=== PATIENT | male | born 1940 | race Caucasian/White ===

== ENCOUNTER 2016-09-12 07:27 | Outpatient (CLI) | payer MEDICARE | END 2016-09-12 07:28 | disposition home or self-care (01) | DX: R97.20 Elevated prostate specific antigen [PSA] (principal); E87.6 Hypokalemia; I10 Essential (primary) hypertension; E78.5 Hyperlipidemia, unspecified; R73.01 Impaired fasting glucose ==

== ENCOUNTER 2016-09-26 | Outpatient (CLI) | payer MEDICARE | END 2016-09-26 09:15 | disposition home or self-care (01) | DX: Z53.9 Procedure and treatment not carried out, unspecified reason (principal) ==

== ENCOUNTER 2016-09-29 12:44 | Outpatient (CLI) | payer MEDICARE ==
[2016-09-29] MEDS ORDERED: ALBUTEROL NEB 2.5 MG/3 ML INH ONE (13:40)
== END 2016-09-29 12:45 | disposition home or self-care (01) ==
DX: R05 Cough (principal)
CPT/HCPCS: 94060; 94729; J7613

== ENCOUNTER 2017-01-03 09:23 | Outpatient (CLI) | payer MEDICARE | END 2017-01-03 09:24 | DX: R74.8 Abnormal levels of other serum enzymes (principal); E87.6 Hypokalemia ==

== ENCOUNTER 2017-01-29 13:03 | Outpatient (CLI) | payer MEDICARE | END 2017-01-29 13:04 | disposition home or self-care (01) | DX: E87.1 Hypo-osmolality and hyponatremia (principal); R74.8 Abnormal levels of other serum enzymes ==

== ENCOUNTER 2017-01-31 10:56 | Outpatient (CLI) | payer MEDICARE ==
[2017-01-31 19:04] LABS: THYROID STIMULATING HORMONE 1.13 uIU/mL (0.34-5.60)
[2017-02-06 12:50] LABS: HOMOCYSTEINE 28.1 umol/L (<11.4)
== END 2017-01-31 10:57 | disposition home or self-care (01) ==
LOC: LAB.F 10:56
PROVIDERS: ATTEND Internal Medicine
DX: R41.3 Other amnesia (principal)
CPT/HCPCS: 36415; 82607; 83090; 83921; 84443

== ENCOUNTER 2017-03-02 10:13 | Outpatient (CLI) | payer MEDICARE ==
[2017-03-06 18:41] LABS: TEST RESULT REPORT (())
[2017-03-07 00:11] LABS: TEST RESULT REPORT (())
== END 2017-03-02 10:14 | disposition home or self-care (01) ==
LOC: LAB.F 10:13
PROVIDERS: ATTEND Internal Medicine
DX: E53.8 Deficiency of other specified B group vitamins (principal)
CPT/HCPCS: 36415; 81599; 83516; 86340

== ENCOUNTER 2017-04-23 11:10 | Outpatient (CLI) | payer MEDICARE ==
[2017-04-23 19:11] LABS: CALCIUM 9.3 mg/dL (8.5-10.3); CREATININE 0.9 mg/dL (0.6-1.2); POTASSIUM 4.6 mmol/L (3.5-5.0)
== END 2017-04-23 11:11 | disposition home or self-care (01) ==
LOC: LAB.F 11:10
PROVIDERS: ATTEND Internal Medicine
DX: E87.1 Hypo-osmolality and hyponatremia (principal)
CPT/HCPCS: 36415; 80048

== ENCOUNTER 2017-06-13 09:23 | Outpatient (CLI) | payer MEDICARE ==
[2017-06-13 17:36] LABS: BILIRUBIN,URINE NEGATIVE (NEGATIVE)
[2017-06-13 17:48] LABS: WBC,URINE 0-3 /HPF (0-3)
== END 2017-06-13 09:24 | disposition home or self-care (01) ==
LOC: LAB.F 09:23
PROVIDERS: ATTEND Internal Medicine
DX: R30.0 Dysuria (principal)
CPT/HCPCS: 81001; 87086

== ENCOUNTER 2017-09-18 08:00 | Outpatient (CLI) | payer MEDICARE ==
[2017-09-18 19:36] LABS: BASOPHILS % (AUTO) 0.4 %; HGB - HEMOGLOBIN 16.5 g/dL (14.0-18.0); LYMPHOCYTES % (AUTO) 41.4 %; MEAN CORPUSCULAR HEMOGLOBIN 30.3 pg (27.0-31.0); MEAN CORPUSCULAR VOLUME 91.8 fL (80.0-94.0); MEAN PLATELET VOLUME 8.8 fL (7.4-11.4); MONOCYTES % (AUTO) 10.9 %; NEUTROPHILS % (AUTO) 46.3 %; PLT - PLATELET COUNT 280 10^3/uL (130-450); RED BLOOD COUNT 5.46 10^6/uL (4.70-6.10); RED CELL DISTRIBUTION WIDTH 13.3 % (12.0-15.0); WHITE BLOOD COUNT 9.8 x10^3/uL (4.8-10.8)
[2017-09-18 19:38] LABS: ABNORMAL LYMPHS % (MANUAL) 0 %
[2017-09-18 20:04] LABS: BAND NEUTROPHILS % (MANUAL) 2 %; DIFFERENTIAL COMMENT MANUAL DIFFERENTIAL; LYMPHOCYTES # (MANUAL) 3.8 10^3/uL (1.5-3.5); LYMPHOCYTES % (MANUAL) 39 %; MONOCYTES # (MANUAL) 0.7 10^3/uL (0.0-1.0); NEUTROPHILS # (MANUAL) 5.3 10^3/uL (1.5-6.6); NEUTROPHILS % (MANUAL) 52 %; PLATELET ESTIMATE, MANUAL NORMAL (130-450,000) (NORMAL); PLATELET MORPHOLOGY 1+ GIANT PLATELETS (NORMAL); RBC MORPHOLOGY (MULTIPLE) NORMAL APPEARANCE (NORMAL)
[2017-09-18 20:16] LABS: ALBUMIN 4.3 g/dL (3.2-5.5); ALBUMIN/GLOBULIN RATIO 1.3 (1.0-2.2); BILIRUBIN,TOTAL 0.5 mg/dL (0.2-1.0); TOTAL PROTEIN 7.6 g/dL (6.7-8.2)
== END 2017-09-18 08:01 | disposition home or self-care (01) ==
LOC: LAB.WCP 08:00
PROVIDERS: ATTEND Nurse Practitioner Family
DX: L29.9 Pruritus, unspecified (principal)
CPT/HCPCS: 36415; 80053; 85025

== ENCOUNTER 2018-01-30 08:00 | Outpatient (CLI) | payer MEDICARE | END 2018-01-30 08:01 | LOC: LAB.R 08:00 | PROVIDERS: ATTEND Physician Assistant Medical | DX: J02.9 Acute pharyngitis, unspecified (principal) | CPT/HCPCS: 87070; 87430 ==

== ENCOUNTER 2020-02-23 19:58 | Emergency (ER) | payer MEDICARE ==
--- NOTE | 2020-02-23 20:31 | ED Physician Documentation ---
History of Present Illness - Stated complaint Stated Complaint: DIZZY, BILAT LEG TINGLE - Chief complaint Chief Complaint: Neuro - History obtained from History obtained from: Patient - History of Present Illness Timing: Today (Relatively healthy 79-year-old gentleman. He has a history of hypertension and is on amlodipine. Also a history of prostate cancer for which he gets intermittent Lupron injections. He was in his usual state of health today, did not really do anything out of the ordinary but the notes that he had 2 large bottles of Diet Coke earlier but that is not that out of the or dinary either. He was on his way back and from getting the mail in about sit down for dinner when he felt both legs start to go tingly and then felt presyncopal. There was no vertigo. Denies weakness. Has a mild right-sided headache.) Review of Systems Constitutional: reports: Fatigue. denies: Fever, Chills Nose: denies: Rhinorrhea / runny nose, Congestion Cardiac: denies: Chest pain / pressure, Palpitations, Pedal edema, Calf pain Respiratory: denies: Dyspnea, Cough, Hemoptysis, Wheezing GI: denies: Abdominal Pain, Nausea, Vomiting, Diarrhea PD PAST MEDICAL HISTORY - Allergies Allergies/Adverse Reactions: Allergies Allergy/AdvReac Type Severity Reaction Status Date / Time Penicillins Allergy Unknown Verified 02/23/20 20:01 Sulfa (Sulfonamide Allergy Rash Verified 02/23/20 20:01 Antibiotics) PD ED PE NORMAL - Vitals Vital signs reviewed: Yes (Mild tachycardia) - General General: Alert and oriented X 3, No acute distress - HEENT HEENT: PERRL, EOMI - Neck Neck: Supple, no meningeal sign, No bony TTP - Cardiac Cardiac: Other (Tachycardic but regular without murmur) - Respiratory Respiratory: No respiratory distress, Clear bilaterally - Abdomen Abdomen: Normal bowel sounds, Soft, Non tender - Back Back: No CVA TTP, No spinal TTP - Derm Derm: Normal color, Warm and dry - Extremities Extremities: No edema, No calf tenderness / cord - Neuro Neuro: Alert and oriented X 3, No motor deficit, No sensory deficit, Normal speech, Other (NIHSS = zero) Results - Vitals Vitals: Vital Signs - 24 hr 02/23/20 02/23/20 20:01 20:57 Temperature 36.6 C Heart Rate 129 H 107 H Respiratory 14 14 Rate Blood Pressure 158/96 H 144/87 H O2 Saturation 98 93 Oxygen O2 Source Room air - EKG (time done) 2011 Rate: Rate (enter#) (116) Rhythm: Sinus tachycardia [place]: Normal Intervals: Normal [place] QRS: Normal Ischemia: Normal ST segments Computer interpretation: Agree with computer - Labs Labs: Laboratory Tests 02/23/20 02/23/20 02/23/20 20:15 20:15 20:39 WBC 8.8 RBC 5.86 Hgb 17.3 Hct 51.2 MCV 87.4 MCH 29.5 MCHC 33.8 RDW 13.6 Plt Count 277 MPV 10.5 Neut # (Auto) 4.2 Lymph # (Auto) 3.5 [place] # (Auto) 0.8 Eos # (Auto) 0.2 Baso # (Auto) 0.1 Absolute Nucleated RBC 0.00 Nucleated RBC % 0.0 VBG pH 7.436 H VBG pCO2 33.7 L VBG pO2 36.8 VBG HCO3 22.2 L VBG Total CO2 23.2 L VBG O2 Saturation 76.8 VBG Base Excess -1.1 Sodium 134 L Potassium 3.8 Chloride 99 L Carbon Dioxide 25 Anion Gap 10.0 BUN 12 Creatinine 0.9 Estimated GFR (MDRD) 81 L Glucose 123 H Lactic Acid Calcium 8.9 Total Bilirubin 0.8 AST 21 ALT 21 Alkaline Phosphatase 68 Total Protein 7.6 Albumin 4.4 Globulin 3.2 Albumin/Globulin Ratio 1.4 Lipase 37 02/23/20 20:39 WBC RBC Hgb Hct MCV MCH MCHC RDW Plt Count MPV Neut # (Auto) Lymph # (Auto) [place] # (Auto) Eos # (Auto) Baso # (Auto) Absolute Nucleated RBC Nucleated RBC % VBG pH VBG pCO2 VBG pO2 VBG HCO3 VBG Total CO2 VBG O2 Saturation VBG Base Excess Sodium Potassium Chloride Carbon Dioxide Anion Gap BUN Creatinine Estimated GFR (MDRD) Glucose Lactic Acid 1.1 Calcium Total Bilirubin AST ALT Alkaline Phosphatase Total Protein Albumin Globulin Albumin/Globulin Ratio Lipase PD MEDICAL DECISION MAKING - ED course ED course: 79-year-old gentleman brought in for nonspecific presyncopal type dizziness that is mostly resolved. Neurologic exam is normal. The only abnormal finding on examination is modest tachycardia which improved throughout his stay. Labs were basically normal with mild respiratory alkalosis. Orthostatics were negative. He was feeling better without specific intervention. Departure - Departure Disposition: 01 Home, Self Care Clinical Impression: Dizziness Condition: Good Record reviewed to determine appropriate education?: Yes Instructions: ED Near Syncope Vasovagal Comments: You were seen today for nonspecific dizziness and presyncopal pattern. Your work-up was for the most part negative without specific findings other than a mildly high heart rate. You did have some evidence of hyperventilation on a blood gas, this could suggest anxiety, everything else was normal. Return for new or worsening symptoms and follow-up with your doctor this week regardless.
[2020-02-23 20:45] LABS: BASOPHILS # (AUTO) 0.1 10^3/uL (0.0-0.1); BASOPHILS % (AUTO) 0.6 %; EOSINOPHILS # (AUTO) 0.2 10^3/uL (0.0-0.7); EOSINOPHILS % (AUTO) 1.9 %; HGB - HEMOGLOBIN 17.3 g/dL (14.0-18.0); LYMPHOCYTES # (AUTO) 3.5 10^3/uL (1.5-3.5); LYMPHOCYTES % (AUTO) 40.3 %; MEAN CORPUSCULAR HEMOGLOBIN 29.5 pg (27.0-31.0); MEAN CORPUSCULAR HGB CONC 33.8 g/dL (32.0-36.0); MEAN CORPUSCULAR VOLUME 87.4 fL (80.0-94.0); MEAN PLATELET VOLUME 10.5 fL (7.4-11.4); MONOCYTES # (AUTO) 0.8 10^3/uL (0.0-1.0); MONOCYTES % (AUTO) 8.6 %; NEUTROPHILS # (AUTO) 4.2 10^3/uL (1.5-6.6); NEUTROPHILS % (AUTO) 48.3 %; PLT - PLATELET COUNT 277 10^3/uL (130-450); RED BLOOD COUNT 5.86 10^6/uL (4.70-6.10); RED CELL DISTRIBUTION WIDTH 13.6 % (12.0-15.0); WHITE BLOOD COUNT 8.8 x10^3/uL (4.8-10.8)
[2020-02-23 20:48] LABS: ALBUMIN 4.4 g/dL (3.2-5.5); ALBUMIN/GLOBULIN RATIO 1.4 (1.0-2.2); BILIRUBIN,TOTAL 0.8 mg/dL (0.2-1.0); CALCIUM 8.9 mg/dL (8.5-10.3); CREATININE 0.9 mg/dL (0.6-1.2); TOTAL PROTEIN 7.6 g/dL (6.7-8.2)
[2020-02-23 20:52] LABS: VBG BASE EXCESS -1.1 mmol/L (-2 - +2); VBG PCO2 33.7 mmHg (41-51); VBG PH 7.436 (7.31-7.41); VBG PO2 36.8 mmHg (25-47); VBG TOTAL CO2 23.2 mmol/L (24-29)
[2020-02-23 21:10] VITALS: BP 145/85
== END 2020-02-23 21:36 | disposition home or self-care (01) ==
LOC: ED 19:58
DX: R55 Syncope and collapse (principal); R42 Dizziness and giddiness; R00.0 Tachycardia, unspecified; E87.3 Alkalosis; I10 Essential (primary) hypertension; Z85.46 Personal history of malignant neoplasm of prostate
CPT/HCPCS: 36415; 80053; 82803; 83605; 83690; 85025; 93005; 99284

== ENCOUNTER 2024-02-19 08:00 | Outpatient (CLI) | payer MEDICARE, OTHER ==
--- NOTE | 2024-02-19 10:41 | XRAY Report ---
PROCEDURE: Chest 2V INDICATIONS: ACUTE COUGH, HYPOXIA TECHNIQUE: 2 views of the chest were acquired. COMPARISON: 05/25/2016 FINDINGS: Surgical changes and devices: None. Lungs and pleura: Mild bilateral basal opacities. No pleural effusions. Mediastinum: Normal heart size Bones and chest wall: Unremarkable IMPRESSION: Mild bilateral basal opacities likely infectious/inflammatory. Consider future imaging surveillance t o assess for resolution. Reviewed by: Dennys Alexadner MD on 02/19/2024 10:40 AM PDT Approved by: Dennys Alexander MD on 02/19/2024 10:40 AM PDT Station ID: [id number]
== END 2024-02-19 23:59 | disposition home or self-care (01) ==
LOC: DI.S 08:00
PROVIDERS: ATTEND Registered Nurse
DX: R09.02 Hypoxemia (principal); R05.1 Acute cough; R00.0 Tachycardia, unspecified; R91.8 Other nonspecific abnormal finding of lung field